=== PATIENT | female | born 1965 | race Asian ===

== ENCOUNTER 2020-03-12 11:00 | Outpatient (CLI) | payer OTHER | END 2020-03-12 23:37 | disposition home or self-care (01) | LOC: RAD 11:00 | DX: G47.30 Sleep apnea, unspecified (principal); J45.909 Unspecified asthma, uncomplicated; M25.569 Pain in unspecified knee; I10 Essential (primary) hypertension; F32.9 Major depressive disorder, single episode, unspecified; E66.9 Obesity, unspecified ==